=== PATIENT | male | born 1990 | race Caucasian/White ===

== ENCOUNTER 2017-04-16 13:28 | Emergency (ER) | payer SELFPAY ==
[~2017-04-16] VITALS: Ht 172.7 cm; Wt 80.0 kg
[~2017-04-16 13:28] MED LIST: (None)3.5 GM OP; GENTAMICIN15 ML/BTL OP
[2017-04-16] MEDS ORDERED: IBUPROFEN600 MG PO (15:03)
[2017-04-16 15:22] VITALS: BP 157/88
== END 2017-04-16 15:28 | disposition home or self-care (01) | DRG 605 ==
LOC: ED 13:28
PROC: 0H9RXZZ Drainage of Toe Nail, External Approach (ICD-10-PCS; principal; 2017-04-16)
DX: S90.212A Contusion of left great toe with damage to nail, initial encounter (principal); W22.8XXA Striking against or struck by other objects, initial encounter

== ENCOUNTER 2017-06-26 19:53 | Emergency (ER) | payer SELFPAY ==
[~2017-06-26] VITALS: Ht 172.7 cm; Wt 82.0 kg
[~2017-06-26 19:53] MED LIST changes: +IBUPROFEN600 MG PO
[2017-06-26] MEDS ORDERED: ROBITUSSIN AC10 ML PO (21:31)
[2017-06-26] MEDS ORDERED: CEPHALEXIN500 MG PO (21:31)
[2017-06-26 22:02] VITALS: BP 128/77
== END 2017-06-26 22:01 | disposition home or self-care (01) | DRG 153 ==
LOC: ED 19:53
DX: J06.9 Acute upper respiratory infection, unspecified (principal); Z87.891 Personal history of nicotine dependence

== ENCOUNTER 2017-06-30 14:59 | Emergency (ER) | payer SELFPAY ==
[~2017-06-30] VITALS: Ht 172.7 cm; Wt 82.0 kg
[~2017-06-30 14:59] MED LIST changes: +CEPHALEXIN500 MG PO; +ROBITUSSIN AC10 ML PO
[2017-06-30 16:53] LABS: INFLUENZA A NONE DETECTED (NONE DETECT); INFLUENZA B NONE DETECTED (NONE DETECT)
[2017-06-30] MEDS ORDERED: FLONASE AL50 MCG/ACT (16:59)
[2017-06-30] MEDS ORDERED: CLARITIN10 M1 PO (16:59)
[2017-06-30 17:07] VITALS: BP 124/76
== END 2017-06-30 17:15 | disposition home or self-care (01) | DRG 153 ==
LOC: ED 14:59
PROVIDERS: Emergency Medicine
DX: J00 Acute nasopharyngitis [common cold] (principal)

== ENCOUNTER 2017-10-14 10:49 | Emergency (ER) | payer SELFPAY ==
[~2017-10-14] VITALS: Ht 172.7 cm; Wt 80.0 kg
[~2017-10-14 10:49] MED LIST changes: +CLARITIN10 M1 PO; +FLONASE AL50 MCG/ACT
[2017-10-14] MEDS ORDERED: MOTRIN800 MG PO (11:52)
[2017-10-14] MEDS ORDERED: ZITHROMAX250 MG PO (11:52)
[2017-10-14] MEDS ORDERED: AFRIN 12 HOUR0.05 % (11:52)
[2017-10-14] MEDS ORDERED: TESSALON PER100 MG PO (11:52)
[2017-10-14 11:55] VITALS: BP 130/82
== END 2017-10-14 11:55 | disposition home or self-care (01) | DRG 203 ==
LOC: ED 10:49
DX: J20.9 Acute bronchitis, unspecified (principal); R05 Cough; R50.9 Fever, unspecified; R09.81 Nasal congestion; R53.1 Weakness; R42 Dizziness and giddiness

== ENCOUNTER 2017-11-17 11:06 | Emergency (ER) | payer SELFPAY ==
[~2017-11-17] VITALS: Ht 172.7 cm; Wt 84.0 kg
[~2017-11-17 11:06] MED LIST changes: +AFRIN 12 HOUR0.05 %; +MOTRIN800 MG PO; +TESSALON PER100 MG PO; +ZITHROMAX250 MG PO
[2017-11-17 12:21] LABS: INFLUENZA A NONE DETECTED (NONE DETECT); INFLUENZA B NONE DETECTED (NONE DETECT)
[2017-11-17] MEDS ORDERED: AMOXICILLIN500 MG PO (12:22)
[2017-11-17 12:27] VITALS: BP 138/80
== END 2017-11-17 12:29 | disposition home or self-care (01) | DRG 153 ==
LOC: ED 11:06
PROVIDERS: Emergency Medicine
DX: J02.0 Streptococcal pharyngitis (principal); R05 Cough

== ENCOUNTER 2018-03-20 09:48 | Emergency (ER) | payer SELFPAY ==
[~2018-03-20] VITALS: Ht 172.7 cm; Wt 81.0 kg
[~2018-03-20 09:48] MED LIST changes: +AMOXICILLIN500 MG PO
[2018-03-20 10:25] VITALS: BP 131/77
== END 2018-03-20 10:25 | disposition home or self-care (01) | DRG 607 ==
LOC: ED 09:48
DX: B07.0 Plantar wart (principal); M79.672 Pain in left foot

== ENCOUNTER 2019-12-23 | Emergency (ER) | payer BC ==
[2019-12-23] MEDS ORDERED: ZOFRAN4 MG/TAB PO (13:09)
== END 2019-12-23 13:16 | disposition home or self-care (01) | DRG 866 ==
DX: B34.9 Viral infection, unspecified (principal); F17.210 Nicotine dependence, cigarettes, uncomplicated

== ENCOUNTER 2021-05-28 07:08 | Emergency (ER) | payer SELFPAY ==
[~2021-05-28] VITALS: Ht 172.7 cm; Wt 89.0 kg
[~2021-05-28 07:08] MED LIST changes: +ZOFRAN4 MG/TAB PO
[2021-05-28] MEDS ORDERED: NAPROXEN500 MG PO (08:16)
[2021-05-28 08:27] VITALS: BP 137/93
== END 2021-05-28 08:45 | disposition home or self-care (01) | DRG 605 ==
LOC: ED 07:08
DX: S10.93XA Contusion of unspecified part of neck, initial encounter (principal); F17.200 Nicotine dependence, unspecified, uncomplicated; V49.60XA Unspecified car occupant injured in collision with unspecified motor vehicles in traffic accident, initial encounter

== ENCOUNTER 2023-02-17 20:12 | Emergency (ER) | payer SELFPAY ==
[2023-02-17] VITALS (12 sets, daily range): BP systolic 122–139; BP diastolic 87–95
[~2023-02-17] VITALS: Ht 172.7 cm; Wt 81.0 kg
[~2023-02-17 20:12] MED LIST changes: +NAPROXEN500 MG PO
[2023-02-17 22:28] LABS: BASO% 0.4 % (0-3); EOS% 3.5 % (0-8); HEMATOCRIT 49.4 % (39.0-50.0); HEMOGLOBIN 16.6 g/dl (14.0-18.0); IMMATURE GRANULOCYTES 0.2 % (0.0-5.0); LYMPH% 12.1 % (15-41); MEAN CORPUSCULAR HGB 28.6 pG CALC (26.0-32.0); MEAN CORPUSCULAR HGB CONC 33.6 g/dL CAL (32.0-36.0); MONO% 1.4 % (2-13); NEUT# 6.83 thou/uL (1.82-7.42); NEUT% 82.4 % (42-76); RED BLOOD COUNT 5.81 mill/uL (4.70-6.10); RED CELL DISTRI WIDTH 14.3 % (11.5-15.5)
[2023-02-17 22:33] LABS: ALBUMIN 4.8 g/dL (3.2-5.0); ALKALINE PHOSPHATASE 103 u/l (38-126); ANION GAP 22 (6-22 (CALC)); BILIRUBIN, TOTAL 2.7 mg/dL (0.2-1.3); BUN 30 mg/dL (9-20); BUN/CREATININE RATIO 34 (12-20 (CALC)); CARBON DIOXIDE 22 mmol/l (22-30); CHLORIDE 99 mmol/l (95-108); CREATININE 0.9 mg/dL (0.7-1.3); GFR FOR AFR.AMER. > 60 ML/MIN (>=60 (CALC)); GFR OTHER RACES > 60 ML/MIN (>=60 (CALC)); LIPASE 307 u/l (23-300); POTASSIUM 3.6 mmol/l (3.5-5.1); SODIUM 139 mmol/l (137-146); TOTAL PROTEIN 8.4 g/dL (6.3-8.2)
[2023-02-17 22:47] LABS: URINE BLOOD DIPSTICK NEGATIVE (NEGATIVE); URINE COLOR BROWN; URINE GLUCOSE - DIPSTICK NEGATIVE (NEGATIVE); URINE KETONE 15 mg/dL (NEGATIVE); URINE LEUK ESTERASE NEGATIVE (NEGATIVE); URINE PROTEIN - DIPSTICK 100 mg/dL (NEG-TRACE); URINE SPECIFIC GRAVITY >=1.030
[2023-02-17 22:48] LABS: URINE BILIRUBIN - DIPSTICK MODERATE (NEGATIVE); URINE NITRITE - DIPSTICK POSITIVE (Negative)
[2023-02-17 22:54] LABS: URINE AMORPH SEDIMENT FEW hpf (NONE-FER); URINE BACTERIA RARE hpf
[2023-02-17 23:54] LABS: SGOT/AST 3876 u/l (17-59)
[2023-02-18] VITALS (11 sets, daily range): BP systolic 136–158; BP diastolic 90–103
== END 2023-02-18 03:24 | disposition other institution (70) | DRG 918 ==
LOC: ED 20:12
PROVIDERS: Emergency Medicine
DX: T39.1X1A Poisoning by 4-Aminophenol derivatives, accidental (unintentional), initial encounter (principal); R11.2 Nausea with vomiting, unspecified; Y92.9 Unspecified place or not applicable; Z20.822 Contact with and (suspected) exposure to COVID-19; F17.200 Nicotine dependence, unspecified, uncomplicated